=== PATIENT | female | born 1980 | race Caucasian/White ===

== ENCOUNTER 2016-12-03 12:59 | Emergency (ER) | payer SELFPAY ==
[~2016-12-03] VITALS: Ht 175.3 cm; Wt 154.2 kg
[~2016-12-03 12:59] MED LIST: ALBU2.5V5 NEB; AMOX875T PO; AZIT1PAC7 PO; HYDR-971 PO; PRED20TA PO
[2016-12-03 13:35] VITALS: BP 150/95
[2016-12-03] MEDS ORDERED: CYCL10TA2 PO (14:09)
[2016-12-03] MEDS ORDERED: AMOX500C PO (14:09)
[2016-12-03] MEDS ORDERED: HYDR-971 PO (14:09)
--- NOTE | 2016-12-03 14:10 | PHYS DOC ---
Past Medical History Past Medical History: Anxiety, Asthma, Depression, GERD Past Surgical History: Alcohol Use: Rarely Drug Use: None Adult General Chief Complaint Chief Complaint: DENTAL PROBLEM HPI HPI Patient is a 36 year old female presents emergency department stating that she is having right upper dental pain. She states that she's been having this since Thursday. His been using Tylenol and ibuprofen for fever chills generalized body aches and discomfort as well. She states that this is not helping with the pain and discomfort. She states that she has increased pain with opening and closing her mouth. She states that she is unable to open it completely. Patient denies any fever, chills or any nausea vomiting. She states that she has tried to contact a dentist office to get in with a weight. Noted. She is also stated that she is waiting for her income tax refiled in order to be able to have financial assistance with pain for the appointment Review of Systems Review of Systems Constitutional: Denies fever or chills [] Eyes: Denies change in visual acuity, redness, or eye pain [] HENT: Denies nasal congestion or sore throat. Right upper dental pain Respiratory: Denies cough or shortness of breath [] Cardiovascular: No additional information not addressed in HPI [] GI: Denies abdominal pain, nausea, vomiting, bloody stools or diarrhea [] : Denies dysuria or hematuria [] Musculoskeletal: Denies back pain or joint pain [] Integument: Denies rash or skin lesions [] Neurologic: Denies headache, focal weakness or sensory changes [] Allergies Allergies Allergies Coded Allergies Type Severity Reaction Last Updated Verified No Known Drug Allergies 03/28/14 No Physical Exam Physical Exam Constitutional: Well developed, well nourished, no acute distress, non-toxic appearance. [] HENT: Normocephalic, atraumatic, bilateral external ears normal, oropharynx moist, no oral exudates, nose normal. Bilateral tympanic membranes appear to be normal. Throat appears to be normal as well. Right upper back molar area appears to be swollen and tender. Patient does have clicking when opening and closing her mouth. She does have pain at the TMJ joint. Eyes: PERRLA, EOMI, conjunctiva normal, no discharge. [] Neck: Normal range of motion, no tenderness, supple, no stridor. [] Cardiovascular:Heart rate regular rhythm, no murmur [] Lungs & Thorax: Bilateral breath sounds clear to auscultation [] Skin: Warm, dry, no erythema, no rash. [] Back: No tenderness Extremities: No tenderness, no cyanosis, no clubbing, ROM intact, no edema. [] Neurologic: Alert and oriented X 3, normal motor function, normal sensory function, no focal deficits noted. [] Psychologic: Affect normal, judgement normal, mood normal. [] Current Patient Data Vital Signs Vital Signs Date Time Temp Pulse Resp B/P Pulse Ox O2 Delivery O2 Flow Rate FiO2 12/03/16 13:35 97.8 111 20 97 Room Air 97.8 EKG EKG [] Radiology/Procedures Radiology/Procedures [] Course & Med Decision Making Course & Med Decision Making Pertinent Labs and Imaging studies reviewed. (See chart for details) Insurance patient is having TMJ issues versus complete dental issue as patient has difficulty opening up the middle for full assessment. We'll place patient on amoxicillin 1 tablet 4 times a day for the next 10 days. We'll also provide her with some pain medication and Flexeril. Recommended her to follow up with a dentist as possible. Patient agrees with discharge instructions treatment regimens and follow-up recommendations. She was instructed hydrocodone and Flexeril will cause drowsiness do not take any be alert and oriented. Patient agrees with discharge instructions treatment regimens and follow-up recommendations. [] Dragon Disclaimer Dragon Disclaimer This electronic medical record was generated, in whole or in part, using a voice recognition dictation system. Departure Departure Impression: Primary Impression: Pain, dental Additional Impression: TMJ (temporomandibular joint syndrome) Disposition: HOME, SELF-CARE Condition: STABLE Referrals: TIMA NICE APRN (PCP) Patient Instructions: Dental Pain, [id number], Temporomandibular Joint Pain- Brief Additional Instructions: Activity as tolerated. Medication as prescribed. Flexeril and hydrocodone will cause drowsiness do not take any be alert and oriented. Warm moist packs to the outer part of the right jawline. Follow-up the dentist in the next week. Return back to emergency prior signs symptoms become worse. Scripts Cyclobenzaprine Hcl 10 Mg [id number] Mg PO TID #15 TAB Prov:DANK MAYEN PHYSICIAN AIDE 12/03/16 Hydrocodone/Apap 5-325 ([place] 5-325 Tablet)1 Each Tablet1 Tab PO PRN Q6HRS PRN PAIN #8 TAB Prov:DANK MAYEN NP 12/03/16 Amoxicillin 500 Mg Capsule1 Cap PO BID #20 CAP Prov:DANK MAYEN NP 12/03/16 Problem Qualifiers DANK MAYEN NP Dec 03, 2016 14:10
== END 2016-12-03 14:21 | disposition home or self-care (01) ==
LOC: ER 12:59
DX: M26.621 Arthralgia of right temporomandibular joint (principal); J45.909 Unspecified asthma, uncomplicated; K21.9 Gastro-esophageal reflux disease without esophagitis
CPT/HCPCS: 99283